=== PATIENT | male | born 1975 | race Caucasian/White ===

== ENCOUNTER 2020-12-03 09:07 | Emergency (ER) | payer OTHER ==
[~2020-12-03] VITALS: Ht 182.9 cm; Wt 123.4 kg
[2020-12-03] MEDS ORDERED: CLEOCIN HCL300 MG PO (09:59)
[2020-12-03] MEDS ORDERED: DOXYCYCLINE HY100 MG PO (09:59)
[2020-12-03] MEDS ORDERED: IBUPROFEN IB200 MG PO (09:59)
[2020-12-03] MEDS ORDERED: TYLENOL # 31 EA PO (09:59)
[2020-12-03] MEDS ORDERED: CLINDAMYCIN PHOS 600 MG/ 4 ML VIAL ONE (10:12)
[2020-12-03] MEDS ORDERED: CLINDAMYCIN PHOS 600 MG/ 4 ML VIAL IM ONE (10:15)
== END 2020-12-03 10:21 | disposition home or self-care (01) ==
LOC: FSED 09:12
DX: L03.012 Cellulitis of left finger (principal)
CPT/HCPCS: 99283